=== PATIENT | female | born 2000 | race Caucasian/White ===

== ENCOUNTER 2025-07-04 00:01 | Emergency (ER) | payer OTHER ==
[~2025-07-04] VITALS: Ht 170.2 cm; Wt 72.6 kg
[2025-07-04] MEDS ORDERED: HYDROCODONE/APAP 5/325MG TABLET ONE (01:18)
[2025-07-04] MEDS: HYDROCODONE/APAP 5/325MG TABLET PO ONE (01:19)
[2025-07-04] MEDS ORDERED: LIDOCAINE 1%-EPI 1:100,000 20 ML VIAL ONE (02:36)
[2025-07-04] MEDS ORDERED: AMOX/CLAVULANATE 875 MG TABLET ONE (02:41)
[2025-07-04] MEDS: AMOX/CLAVULANATE 875 MG TABLET PO ONE (02:42)
[2025-07-04] MEDS ORDERED: AMOX-430 PO (02:45)
[2025-07-04] MEDS ORDERED: HYDR-3972 PO (02:45)
[2025-07-04 03:23] VITALS: BP 130/77; TEMP 98.4; O2SAT 98
== END 2025-07-04 04:24 | disposition home or self-care (01) ==
LOC: ER 00:05
DX: S22.39XA Fracture of one rib, unspecified side, initial encounter for closed fracture (principal); S02.40CA Maxillary fracture, right side, initial encounter for closed fracture; S01.81XA Laceration without foreign body of other part of head, initial encounter; S40.021A Contusion of right upper arm, initial encounter; V49.19XA Passenger injured in collision with other motor vehicles in nontraffic accident, initial encounter; Y93.89 Activity, other specified; Y92.410 Unspecified street and highway as the place of occurrence of the external cause; Y99.9 Unspecified external cause status; Z60.2 Problems related to living alone
CPT/HCPCS: 12011; 70450; 70486; 71100; 72125; 73060; 99284; A6403; J3490